=== PATIENT | male | born 1990 | race African-American/Black ===

== ENCOUNTER 2017-01-03 16:32 | Emergency (ER) | payer OTHER ==
[~2017-01-03] VITALS: Ht 177.8 cm; Wt 59.0 kg
[~2017-01-03 16:32] MED LIST: BENTYL 20 MG TA20 M1 PO; ONDANSETRON HCL4 M2 PO
[2017-01-03 16:36] VITALS: BP 116/77
== END 2017-01-03 17:36 | disposition home or self-care (01) ==
LOC: ER 16:32
DX: H10.89 Other conjunctivitis (principal); F10.99 Alcohol use, unspecified with unspecified alcohol-induced disorder; Z91.018 Allergy to other foods

== ENCOUNTER 2017-01-06 19:06 | Emergency (ER) | payer OTHER ==
[~2017-01-06] VITALS: Ht 177.8 cm; Wt 65.8 kg
[2017-01-06 19:24] VITALS: BP 116/80
[2017-01-06] MEDS ORDERED: ERYTHROMYCIN E3.5 G2 OPHTHALMIC ×2 (20:23→21:01)
== END 2017-01-06 20:50 | disposition home or self-care (01) ==
LOC: ER 19:06
DX: H10.9 Unspecified conjunctivitis (principal); F17.210 Nicotine dependence, cigarettes, uncomplicated; F10.99 Alcohol use, unspecified with unspecified alcohol-induced disorder; Z91.018 Allergy to other foods